=== PATIENT | female | born 1935 | race Caucasian/White ===

== ENCOUNTER 2018-02-16 12:21 | Emergency (ER) | payer MEDICARE, BC ==
[2018-02-16 13:26] VITALS: BP 102/51; PULSE 88; RESP 14; TEMP 97.7; O2SAT 95
== END 2018-02-16 15:57 | disposition home or self-care (01) | DRG 552 ==
LOC: EDBD → MERGE 12:21 → ED 12:21
DX: M51.17 Intervertebral disc disorders with radiculopathy, lumbosacral region (principal); R60.0 Localized edema; F51.01 Primary insomnia; M48.00 Spinal stenosis, site unspecified; M51.26 Other intervertebral disc displacement, lumbar region
CPT/HCPCS: 99283

== ENCOUNTER 2018-03-26 13:54 | Day surgery (SDC) | payer MEDICARE, BC ==
[2018-03-26 14:45] VITALS: TEMP 98.8
[2018-03-26] MEDS ORDERED: DEXAMETHASONE SOD PHOS PF 10 MG/ML SOL IJ ONE (15:09)
[2018-03-26] MEDS ORDERED: BUPIVACAINE HCL 0.25% MPF 30 ML SOL INFIL ONE (15:10)
[2018-03-26 15:20] VITALS: O2SAT 99
[2018-03-26 15:53] VITALS: BP 168/85; PULSE 74; RESP 18
== END 2018-03-26 16:18 | disposition home or self-care (01) | DRG 552 ==
LOC: SURG 13:54
PROVIDERS: ATTEND Nurse Anesthetist, Certified Registered
DX: M51.17 Intervertebral disc disorders with radiculopathy, lumbosacral region (principal)
CPT/HCPCS: J1100